=== PATIENT | male | born 1985 | race Two or more races ===

== ENCOUNTER → 2016-04-26 | Outpatient (CLI) | payer SELFPAY ==
--- NOTE | 2016-04-26 14:02 | CR ---
EXAMINATION: Cervical spine HISTORY: Pain COMPARISON: None TECHNIQUE: AP and lateral views FINDINGS: The cervical spinal alignment is normal. The vertebral body heights and disc spaces appear well-maintained. There is no fracture or dislocation. The prevertebral soft tissues appear normal. IMPRESSION: Unremarkable cervical spine.
== END ==
LOC: MW.CHFP 09:36
PROVIDERS: ATTEND Student in an Organized Health Care Education/Training Program
DX: M25.511 Pain in right shoulder (principal); M25.512 Pain in left shoulder; R20.0 Anesthesia of skin; R20.2 Paresthesia of skin
CPT/HCPCS: 72040; 72040-26